=== PATIENT | female | born 1980 | race Caucasian/White ===

== ENCOUNTER 2022-10-02 17:05 | Outpatient (OUT) | payer OTHER, SELFPAY ==
--- NOTE | 2022-10-02 | XR_ITS ---
[facility] [place] [id number] Patient Name: KELLEY ARNOLD MRN: [id number] date: 1980 Sex: F Assigned Patient Location: [facility] Current Patient Location: [facility] Accession/Order Number: [id number] Exam Date: 10/02/2022 17:40 Report Date: 10/02/2022 19:59 At the request of: KHAI ANTON Procedure: XR lumbar spine 2-3V EXAM: XR lumbar spine 2-3V HISTORY: M51.18 COMPARISON: None. TECHNIQUE: AP and lateral views of the lumbar spine were obtained. FINDINGS: There is relatively normal curvature and alignment of the vertebral bodies throughout the lumbar spine. The vertebral body heights are intact. Small osteophytes arise from the vertebral bodies in the mid and lower lumbar spine. No significant focal abnormality is seen in the vertebral bodies. There is attempted sacralization of the L5 vertebral body on the right with a pseudojoint formation present. There is moderate narrowing of the disc spaces from L4 through S1. The remainder the disc spaces are intact. Mild hypertrophic changes are seen in the facets in the lower lumbar spine without an apparent acute fracture or subluxation. The posterior soft tissues are intact. IMPRESSION: There is no evidence of an acute fracture or anterior spondylolisthesis. Degenerative changes are present in the lower lumbar spine from L4 through S1, as described. There is attempted sacralization of the L5 vertebral body on the right with a pseudojoint formation. Direct comparison with a previous study may be helpful in determining the chronicity of these findings. Electronically authenticated by: JUDI RHOADES Date: 10/02/2022 19:59
== END 2022-10-02 17:06 | disposition home or self-care (01) ==
PROVIDERS: PCP Family Medicine; Visit Provider Family Medicine
DX: M51.16 Intervertebral disc disorders with radiculopathy, lumbar region (principal)
CPT/HCPCS: 72100